=== PATIENT | male | born 1995 | race Caucasian/White ===

== ENCOUNTER 2019-07-10 20:58 | Emergency (ER) | payer BC ==
[~2019-07-10] VITALS: Ht 188 cm; Wt 109.1 kg
[2019-07-10 21:22] LABS: STREP SCREEN POSITIVE
[2019-07-10 22:38] VITALS: BP 141/83; PULSE 90; TEMP 100.9
== END 2019-07-10 23:15 | disposition home or self-care (01) ==
LOC: COL.ER 20:58
PROVIDERS: Emergency Medicine
DX: J02.0 Streptococcal pharyngitis (principal)
CPT/HCPCS: J0561; J1100; J1885; J2405; J7030